=== PATIENT | female | born 1995 | race Caucasian/White ===

== ENCOUNTER 2017-09-26 19:35 | Emergency (ER) | payer SELFPAY ==
--- NOTE | 2017-09-26 21:32 | ER Document Report ---
ED Medical Screen (RME) - General Chief Complaint: Abdominal Cramping Stated Complaint: STOMACH PAIN Time Seen by Provider: 09/26/17 21:30 Notes: 21-year-old female, at approximately 12 weeks gestation by last menstrual period, comes emergency department for chief complaint of worsening cramps for the past 2 days. No bleeding, no fever, no discharge. No ultrasound this yet. TRAVEL OUTSIDE OF THE [place] IN LAST 30 DAYS: No - Related Data Allergies/Adverse Reactions: sulfamethoxazole [From Octra] Allergy (Verified 09/26/17 19:40) trimethoprim [From Octra] Allergy (Verified 09/26/17 19:40) Physical Exam - Vital signs Vitals: Temp Pulse Resp BP Pulse Ox 99.5 F 82 18 124/71 100 09/26/17 19:55 09/26/17 19:55 09/26/17 19:55 09/26/17 19:55 09/26/17 19:55 - Abdominal Tenderness: Nontender - Exam limited by sitting position but no overt tenderness noted. No: Tender, McBurney's point, Lang's sign, Guarding Course - Vital Signs Vital signs: Temp Pulse Resp BP Pulse Ox 99.5 F 82 18 124/71 100 09/26/17 19:55 09/26/17 19:55 09/26/17 19:55 09/26/17 19:55 09/26/17 19:55
--- NOTE | 2017-09-26 22:57 | ER Document Report ---
ED General - General Chief Complaint: Abdominal Cramping Stated Complaint: STOMACH PAIN Time Seen by Provider: 09/26/17 21:30 Notes: Patient is a 21 old female presents with complaints of some lower pelvic cramping and pain. It has been ongoing for 2 days. She is approximately 12 weeks . She has not had any care as of yet. She is taking vitamins. This is her second . She denies any pain with her first . She denies any vaginal bleeding or abnormal discharge. He does have some morning sickness. TRAVEL OUTSIDE OF THE [place] IN LAST 30 DAYS: No - Related Data Allergies/Adverse Reactions: sulfamethoxazole [From ] Allergy (Verified 09/26/17 19:40) trimethoprim [From ] Allergy (Verified 09/26/17 19:40) Past Medical History - Social History Smoking Status: Never Smoker Frequency of alcohol use: None Drug Abuse: None Family History: Reviewed & Not Pertinent Review of Systems - Review of Systems Notes: My Normal Review Basic REVIEW OF SYSTEMS: CONSTITUTIONAL : Denies fever, chills, or sweats. Denies recent illness. EENT: Denies eye, ear, throat, or mouth pain or symptoms. Denies nasal or sinus congestion. RESPIRATORY: Denies cough, cold, or chest congestion. Denies shortness of breath, difficulty breathing, or wheezing. GASTROINTESTINAL: Intermittent suprapubic pain. Some morning sickness. GENITOURINARY: Denies difficulty urinating, painful urination, burning, frequency, or blood in urine. FEMALE GENITOURINARY: Denies vaginal bleeding, abnormal or irregular periods. Currently MUSCULOSKELETAL: Denies neck or back pain or joint pain or swelling. SKIN: Denies rash or skin lesions. NEUROLOGICAL: Denies altered mental status or loss of consciousness. ALL OTHER SYSTEMS REVIEWED AND NEGATIVE. Physical Exam - Vital signs Vitals: Temp Pulse Resp BP Pulse Ox 99.5 F 82 18 124/71 100 09/26/17 19:55 09/26/17 19:55 09/26/17 19:55 09/26/17 19:55 09/26/17 19:55 - Notes Notes: General Appearance: Well nourished, alert, cooperative, no acute distress, no obvious discomfort. Well appearing. Vitals: reviewed, See vital signs table. Eyes: PERRL, EOMI, Conjuctiva clear Mouth: No decreasd moisture Lungs: No wheezing, No rales, No rhonci, No accessory muscle use, good air exchange bilaterally. Heart: Normal rate, Regular rythm, No murmur, no rub Abdomen: Normal BS, soft, No rigidity, mild suprapubic abdominal tenderness to palpation, No guarding, no rebound, no abdominal masses, no organomegaly Extremities: strength 5/5 in all extremities, good pulses in all extremities, no swelling or tenderness in the extremities, no edema. Skin: warm, dry, appropriate color, no rash Neuro: speech clear, oriented x 3, normal affect, responds appropriately to questions. Course - Re-evaluation Re-evalutation: 09/27/17 03:56 Patient is well-appearing. She did have some signs of dehydration therefore gave her a liter of IV fluids. I will give her Reglan to help with her nausea. She does have a UTI which most likely is causing some the cramping pain into her pelvic region. She has not had any abnormal vaginal discharge or bleeding. Strongly encouraged her follow-up closely with her OB doctor. I encouraged her return to ER if she has recurrent vomiting, fevers, any vaginal bleeding, or she feels unwell. Patient agrees with plan and will be discharged home. Dictation of this chart was performed using voice recognition software; therefore, there may be some unintended grammatical errors. - Vital Signs Vital signs: Temp Pulse Resp BP Pulse Ox 99.5 F 74 16 106/54 L 100 09/26/17 19:55 09/27/17 01:30 09/27/17 01:30 09/27/17 01:30 09/27/17 01:30 - Laboratory Result Diagrams: 09/26/17 22:05 09/26/17 22:05 Laboratory results interpreted by me: 09/26/17 09/26/17 09/26/17 22:00 22:05 22:05 RDW 14.6 H Carbon Dioxide 21 L Alkaline Phosphatase 42 L Beta HCG, Quant 653856.00 H Urine Ketones 80 H Urine Urobilinogen 4.0 H Ur Leukocyte Esterase LARGE H Discharge - Discharge Clinical Impression: Abdominal pain Qualifiers: Abdominal location: lower abdomen, unspecified Qualified Code(s): R10.30 - Lower abdominal pain, unspecified Qualifiers: Weeks of gestation: 12 weeks Qualified Code(s): Z3A.12 - 12 weeks gestation of UTI (urinary tract infection) Qualifiers: Urinary tract infection type: site unspecified Hematuria presence: without hematuria Qualified Code(s): N39.0 - Urinary tract infection, site not specified Condition: Good Disposition: HOME, SELF-CARE Additional Instructions: Please take the antibiotics as prescribed. Please take the nausea medicine to help with your nausea and vomiting. Please follow up with an OB as soon as possible for continued care during your . Please return to the ER immediately if you develop fevers, intractable vomiting, worsening abdominal pain, or if you feel unwell. Prescriptions: Cephalexin Monohydrate [Keflex 500 mg Capsule] 500 mg PO BID #14 capsule Metoclopramide HCl [Reglan 10 mg Tablet] 1 tab PO ASDIR PRN #25 tablet PRN Reason: Referrals: TUCKER FRIAS MD [ACTIVE STAFF] - Follow up in 3-5 days
[2017-09-26 23:07] LABS: ABSOLUTE LYMPHOCYTES (AUTO) 2.4 10^3/uL (0.5-4.7); ABSOLUTE MONOCYTES (AUTO) 0.4 10^3/uL (0.1-1.4); ABSOLUTE NEUT (AUTO) 4.9 10^3/uL (1.7-8.2); BASOPHILS % (AUTO) 0.4 % (0-2); EOSINOPHILS % (AUTO) 0.2 % (0-6); HEMATOCRIT 42.9 % (36.0-47.0); HEMOGLOBIN 14.8 g/dL (12.0-15.5); LYMPHOCYTES % (AUTO) 30.6 % (13-45); MEAN CORPUSCULAR HEMOGLOBIN 28.1 pg (27.0-33.4); MEAN CORPUSCULAR HGB CONC 34.5 g/dL (32.0-36.0); MEAN CORPUSCULAR VOLUME 82 fl (80-97); MONOCYTES % (AUTO) 5.4 % (3-13); PLATELET COUNT 226 10^3/uL (150-450); RED BLOOD COUNT 5.27 10^6/uL (3.72-5.28); RED CELL DISTRIBUTION WIDTH 14.6 % (11.5-14.0); SEGMENTED NEUTROPHILS % (AUTO) 63.4 % (42-78); TOTAL CELLS COUNTED % (AUTO) 100 %; WHITE BLOOD COUNT 7.8 10^3/uL (4.0-10.5)
[2017-09-26 23:12] LABS: APPEARANCE,URINE SLIGHTLY-CLOUDY; BILIRUBIN,URINE NEGATIVE (NEGATIVE); COLOR,URINE YELLOW; GLUCOSE, URINE NEGATIVE (NEGATIVE); KETONES,URINE 80 mg/dL (NEGATIVE); LEUKOCYTE ESTERASE,URINE LARGE (NEGATIVE); NITRITE,URINE NEGATIVE (NEGATIVE); PROTEIN,URINE NEGATIVE (NEGATIVE); URINE SPECIFIC GRAVITY 1.027
[2017-09-26 23:15] LABS: ALANINE AMINOTRANSFERASE 26 U/L (5-35); ALBUMIN 4.4 g/dL (3.7-5.6); ALKALINE PHOSPHATASE 42 U/L (50-135); ANION GAP 16 (5-19); ASPARTATE AMINO TRANSFERASE 15 U/L (5-30); BILIRUBIN,DIRECT 0.2 mg/dL (0.0-0.4); BILIRUBIN,TOTAL 0.6 mg/dL (0.2-1.3); BLOOD UREA NITROGEN 7 mg/dL (7-20); CARBON DIOXIDE 21 mmol/L (22-30); CHLORIDE 104 mmol/L (98-107); GLUCOSE 82 mg/dL (75-110); POTASSIUM 3.6 mmol/L (3.6-5.0); SODIUM 140.7 mmol/L (137-145); TOTAL PROTEIN 7.8 g/dL (6.3-8.2)
--- NOTE | 2017-09-26 23:33 | RADIOLOGY REPORT (SQ) ---
EXAM DESCRIPTION: US LESS THAN 14 WEEKS ADDITIONAL COMPLETED DATE/TME: 09/26/2017 21:30 CLINICAL HISTORY: 21 years Female, pelvic pain, Comparison: None. TECHNIQUE: Transvaginal. LIMITATIONS: None. FINDINGS: Living intrauterine fetus measures 12w5d with NIDHI of 04/05/2018. Cardiac activity is 155-bpm. [place]-rump length is 6.3-cm. 3.1-cm right ovary, nonvisualized left ovary, 1.8-cm likely rightcorpus luteum, 3.1-cm cervical length, and no free fluid. IMPRESSION: Living 1st trimester intrauterine gestation. No evidence of complication.
[2017-09-26] MEDS ORDERED: ONDANSETRON 4 MG TAB.RAPDIS PO ONE (23:55)
[2017-09-26] MEDS ORDERED: NORMAL SALINE 1000 ML 1,000 ML IV ONE (23:56)
[2017-09-26] MEDS ORDERED: CEFTRIAXONE INJ 1000 MG VIAL IV ONE (23:56)
[2017-09-26] MEDS ORDERED: METOCLOPRAMIDE HCL 10 MG TABLET PO ONE (23:57)
[2017-09-27 01:31] VITALS: BP 106/54
== END 2017-09-27 01:30 | disposition home or self-care (01) ==
LOC: ER 19:35
DX: O23.41 Unspecified infection of urinary tract in pregnancy, first trimester (principal); O26.891 Other specified pregnancy related conditions, first trimester; R10.2 Pelvic and perineal pain; R11.0 Nausea; Z88.1 Allergy status to other antibiotic agents; Z3A.12 12 weeks gestation of pregnancy
CPT/HCPCS: 86900; 86901; 36415; 84702; 85025; 80053; 81001; 76801; 93976; J0696; J7030

== ENCOUNTER 2018-03-15 22:07 | Outpatient (CLI) | payer MEDICAID ==
[2018-03-15 22:32] LABS: APPEARANCE,URINE SLIGHTLY-CLOUDY; BILIRUBIN,URINE NEGATIVE (NEGATIVE); COLOR,URINE YELLOW; GLUCOSE, URINE NEGATIVE (NEGATIVE); KETONES,URINE NEGATIVE (NEGATIVE); LEUKOCYTE ESTERASE,URINE LARGE (NEGATIVE); NITRITE,URINE NEGATIVE (NEGATIVE); PROTEIN,URINE NEGATIVE (NEGATIVE); URINE SPECIFIC GRAVITY 1.026
[2018-03-15 22:47] LABS: URINE AMPHETAMINES SCREEN NEGATIVE; URINE BARBITURATES SCREEN NEGATIVE; URINE BENZODIAZEPINES SCREEN NEGATIVE; URINE COCAINE SCREEN NEGATIVE; URINE MARIJUANA (THC) SCREEN NEGATIVE; URINE METHADONE SCREEN NEGATIVE; URINE PHENCYCLIDINE SCREEN NEGATIVE
--- NOTE | 2018-03-15 23:10 | Non Stress Test Report ---
Non Stress Test Datetime Report Generated by CPN: 03/15/2018 23:10 DEMOGRAPHIC EGA NST: 37.0 INDICATION Indication for Study: Ordered by Provider VITAL SIGNS Temperature - NST: 98.6 MONITORING Monitor Explained: Monitor Explained; Test Explained; Patient Verbalized Understanding Time on Monitor: 03/15/2018 22:24 Time off Monitor: 03/15/2018 23:08 NST Duration: 44 NST INTERVENTIONS NST Interventions: None Physician Notified NST: Dr. Hernandez BABY A: [id number] BABY A Movement : Present Contraction Frequency : uterine irritability FHR Baseline : 135 Accelerations : 15X15 Decelerations : None Variability : Moderate 6-25bpm NST Review: Meets Criteria for Reactive NST NST Review and Verified By : LUZMA Olson NST REPORT Report Trigger: Send Report
== END 2018-03-15 23:02 | disposition home or self-care (01) ==
LOC: LC 22:07
PROVIDERS: ATTEND Obstetrics & Gynecology Gynecology
PROC: 4A1HXCZ Monitoring of Products of Conception, Cardiac Rate, External Approach (ICD-10-PCS; principal; 2018-03-15)
DX: O47.1 False labor at or after 37 completed weeks of gestation (principal); Z3A.37 37 weeks gestation of pregnancy
CPT/HCPCS: 80307; 81005

== ENCOUNTER 2018-03-29 05:04 | Inpatient (IN) | payer MEDICAID ==
[2018-03-28 11:43] LABS: ABSOLUTE EOSINOPHILS # (AUTO) 0.1 10^3/uL (0.0-0.6); ABSOLUTE LYMPHOCYTES (AUTO) 1.4 10^3/uL (0.5-4.7); ABSOLUTE MONOCYTES (AUTO) 0.5 10^3/uL (0.1-1.4); BASOPHILS % (AUTO) 0.4 % (0-2); EOSINOPHILS % (AUTO) 0.7 % (0-6); HEMATOCRIT 32.2 % (36.0-47.0); HEMOGLOBIN 10.7 g/dL (12.0-15.5); LYMPHOCYTES % (AUTO) 17.8 % (13-45); MEAN CORPUSCULAR HEMOGLOBIN 23.8 pg (27.0-33.4); MEAN CORPUSCULAR HGB CONC 33.2 g/dL (32.0-36.0); MEAN CORPUSCULAR VOLUME 72 fl (80-97); PLATELET COUNT 175 10^3/uL (150-450); RED CELL DISTRIBUTION WIDTH 15.3 % (11.5-14.0); SEGMENTED NEUTROPHILS % (AUTO) 75.1 % (42-78); TOTAL CELLS COUNTED % (AUTO) 100 %
[2018-03-28 11:52] LABS: APPEARANCE,URINE SLIGHTLY-CLOUDY; BILIRUBIN,URINE NEGATIVE (NEGATIVE); COLOR,URINE YELLOW; GLUCOSE, URINE NEGATIVE (NEGATIVE); KETONES,URINE NEGATIVE (NEGATIVE); LEUKOCYTE ESTERASE,URINE MODERATE (NEGATIVE); NITRITE,URINE NEGATIVE (NEGATIVE); PROTEIN,URINE NEGATIVE (NEGATIVE); URINE SPECIFIC GRAVITY 1.017; UROBILINOGEN,URINE NEGATIVE mg/dL (<2.0)
[2018-03-28 12:01] LABS: URINE AMPHETAMINES SCREEN NEGATIVE; URINE BARBITURATES SCREEN NEGATIVE; URINE BENZODIAZEPINES SCREEN NEGATIVE; URINE COCAINE SCREEN NEGATIVE; URINE MARIJUANA (THC) SCREEN NEGATIVE; URINE METHADONE SCREEN NEGATIVE; URINE PHENCYCLIDINE SCREEN NEGATIVE
[2018-03-28 13:11] LABS: CHLAM PCR NOT DETECTED (NOT DETECT); GON PCR NOT DETECTED (NOT DETECT)
[2018-03-29] MEDS ORDERED: CEFAZOLIN 2 GM/D5W RTU 2 GM/50 ML RTUPB IV PRN (05:09)
[2018-03-29] MEDS ORDERED: RINGERS SOLUTION,LACTATED 1,000 ML IV ONE (05:15)
[2018-03-29] MEDS ORDERED: ONDANSETRON HCL INJ/PF 4 MG/2 ML SDV ONE (07:14)
[2018-03-29] MEDS ORDERED: OXYTOCIN/NORMAL SALINE 20 UNIT/1,000 ML RTUINJ ONE (07:14)
[2018-03-29] MEDS ORDERED: MIDAZOLAM 2 MG/2 ML INJ ONE (07:14)
[2018-03-29] MEDS ORDERED: FENTANYL CITRATE INJ/PF 100 MCG/2 ML AMPUL ONE (07:14)
[2018-03-29] MEDS ORDERED: KETOROLAC TROMETHAMINE INJ/PF 30 MG/1 ML SDV ONE (07:14)
[2018-03-29] MEDS ORDERED: EPHEDRINE SULFATE INJ 50 MG/1 ML AMPULE ONE (07:14)
[2018-03-29] MEDS ORDERED: OXYTOCIN 10 UNIT/ML VIAL ONE (07:14)
[2018-03-29] MEDS ORDERED: ACETAMINOPHEN 1,000 MG/100 ML RTUPB IV ONE (07:14)
[2018-03-29] MEDS ORDERED: ONDANSETRON HCL INJ/PF 4 MG/2 ML SDV IV PRN (08:15)
[2018-03-29] MEDS ORDERED: DIPHENHYDRAMINE HCL 50 MG/ML VIAL IV PRN (08:15)
[2018-03-29] MEDS ORDERED: FENTANYL CITRATE INJ/PF 100 MCG/2 ML AMPUL IV PRN ×3 (08:15)
[2018-03-29] MEDS ORDERED: PROMETHAZINE HCL INJ 25 MG/1 ML VIAL IV PRN ×3 (08:15→08:53)
[2018-03-29] MEDS ORDERED: OXYCODONE-ACETAMINOPHEN 5-325 MG TABLET PO PRN ×3 (08:15→08:53)
[2018-03-29] MEDS ORDERED: MEPERIDINE HCL/PF INJ 25 MG/1 ML DISP.SYRIN IV PRN (08:15)
--- NOTE | 2018-03-29 08:50 | PDOC DELIVERY SUMMARY ---
Delivery Summary - Maternal Hx : II Hx Para: I Hx # Term Pregnancies: 1 Hx # Pregnancies: 0 Hx Total # of Abortions (Sponateous & Elective): 0 NIDHI: 04/05/18 Gestational Age: 39 Ruptured Membranes: AROM Time of Rupture: 08:05 Fluids: Clear - Delivery Labor: Not In Labor Presentation: Vertex Heart Rate Monitoring: Done Pre-Operatively Support Person Present: Yes Location: OR : Scheduled, Repeat Placenta: Within Normal Limits Placenta Description: Normal-appearing Number of Vessels (Cord): 3 Delivery of Placenta Date: 03/29/18 Delivery of Placenta Time: 08:08 Estimated Blood Loss: 800 ml - Medications Type of Anesthesia:: Spinal - Infant Assess and Care Baby 1 Female Delivery of Date: 03/29/18 Delivery of Time: 08:07 at 1 minute: 9 at 5 minutes: 9 Preprinted Number On Band: [id number] Infant Skin to Skin: Yes Skin to Skin (Mins): 5 To Nursery At: 08:17 [facility] Personnel Machine Hamper Maker: SILKE Putnam RN: CHINMAY SALVADOR RN RN: JOHNNY WINKLER MD: IZAIAH DUMONT
[2018-03-29] MEDS ORDERED: OXYTOCIN/NORMAL SALINE 20 UNIT/1,000 ML RTUINJ IV PRN (08:53)
[2018-03-29] MEDS ORDERED: ACETAMINOPHEN 325 MG TABLET PO PRN (08:53)
[2018-03-29] MEDS ORDERED: SIMETHICONE 80 MG TAB.CHEW PO PRN (08:53)
[2018-03-29] MEDS ORDERED: DIPH/PERTUSS(ACELL)/TETANUS VAC/PF 0.5 ML SYR (>=10YO) IM PRN (08:53)
--- NOTE | 2018-03-29 08:53 | Operative Report ---
Operative Report DATE OF SURGERY: 03/29/18 PREOPERATIVE DIAGNOSIS: 1. Intrauterine at 39-0/7 weeks. 2. Previo us section x1. 3. GBS negative. 4. Rh+. 5. Rubella immune POSTOPERATIVE DIAGNOSIS: Same OPERATION: Repeat section SURGEON: IZAIAH RHODES ANESTHESIA: Spinal TISSUE REMOVED OR ALTERED: Placenta COMPLICATIONS: None ESTIMATED BLOOD LOSS: 800 ml INTRAOPERATIVE FINDINGS: Female in a cephalic position; Apgars 9 at one, 9 at 5 with a weight of 7 pounds 2 ounces; normal-appearing uterus, bilateral tubes and ovaries PROCEDURE: The patient was taken to the operating room where spinal anesthesia was obtained and found to be adequate. She was then prepped and draped in the normal sterile fashion and placed in the dorsal supine position with a leftward tilt. A Pfannenstiel skin incision was then made and carried through to the underlying layers of the fascia with the scalpel. The fascia was incised in the midline and the incision extended laterally with the Núñez scissors. The superior aspect of the fascial incision was then grasped with Akren clamps elevated and the underlying rectus muscles dissected off both bluntly and sharply. Attention was then turned to the inferior aspect of the fascial incision which in a similar fashion was grasped, tented up with Karen clamps, and the rectus muscles dissected off both bluntly and sharply. The rectus muscles were then in the midline and the peritoneum was identified and entered both sharply and bluntly. The peritoneal incision was then extended superiorly and inferiorly with good visualization of the bladder. The bladder blade was inserted and the vesicouterine peritoneum identified grasped with Monegasque pickups and entered sharply with the Metzenbaum scissors. This incision was then extended laterally with the Metzenbaum scissors and a bladder flap created digitally. The bladder blade was then reinserted and the lower uterine segment incised in a transverse fashion with the scalpel. The uterine incision was then extended bluntly and with the bandage scissors. The bladder blade was removed and the infant's head was delivered from cephalic presentation atraumatically. The nose and mouth were suctioned and the cord doubly clamped and cut. The was handed off to waiting pediatricians. The placenta was then delivered manually and the uterus exteriorized and cleared of all clots and debris. The uterine incision was then repaired with 0 Vicryl in a running locked fashion. 0-Chromic was used to obtain hemostasis via imbrication of the initial layer. The bladder flap was then repaired with 3-0 Vicryl in a running fashion. The uterus was returned to the patient's abdomen and Interceed was placed overlying the uterine incision, as well as a piece placed vertically on the anterior surface of the uterus, to prevent adhesions. The gutters were cleared of all clots and debris. All operative sites were noted to be hemostatic. The fascia was reapproximated with 0 Vicryl in a running fashion from each lateral edge to the midline. The subcutaneous fat layer was then closed in an interrupted fashion with 3-0 vicryl. The skin was closed with 4-0 Monocryl in a running, subcuticular fashion. The patient tolerated the procedure well. Sponge, lap, needle and instrument counts are correct x 2. 2 g of Ancef were given prior to skin incision. The patient was taken to the recovery area awake and in stable condition.
[2018-03-29] MEDS ORDERED: OXYCODONE-ACETAMINOPHEN 5-325 MG TABLET ONE (10:54)
[2018-03-29] MEDS: HYDROMORPHONE HCL INJ/PF 2 MG/ML AMPULE IV PRN ×2 (12:17→21:11)
[2018-03-29] MEDS: PRENATAL VITAMIN W DHA CAPSULE PO SCH (13:30)
[2018-03-29] MEDS: DOCUSATE SODIUM 100 MG CAPSULE PO SCH ×2 (13:30→17:40)
[2018-03-29] MEDS: KETOROLAC TROMETHAMINE INJ/PF 30 MG/1 ML SDV IV SCH ×2 (13:31→22:32)
[2018-03-29] MEDS: OXYCODONE-ACETAMINOPHEN 5-325 MG TABLET PO PRN ×2 (14:06→17:42)
[2018-03-30] MEDS: OXYCODONE-ACETAMINOPHEN 5-325 MG TABLET PO PRN ×4 (03:14→22:44)
[2018-03-30] MEDS: IBUPROFEN 800 MG TABLET PO SCH ×4 (03:20→20:50)
[2018-03-30] MEDS ORDERED: LIDOCAINE 0.5% INJ-PF (5 MG/ML) 50 ML SDV SUBCUT PRN (05:00)
[2018-03-30] MEDS ORDERED: NORMAL SALINE 1000 ML (RENAL PATIENTS) IV PRN (05:00)
[2018-03-30] MEDS ORDERED: LACTATED RINGERS 1000 ML IV PRN (05:00)
[2018-03-30 08:08] LABS: HEMATOCRIT 28.3 % (36.0-47.0); HEMOGLOBIN 9.2 g/dL (12.0-15.5); MEAN CORPUSCULAR HEMOGLOBIN 23.8 pg (27.0-33.4); MEAN CORPUSCULAR HGB CONC 32.6 g/dL (32.0-36.0); MEAN CORPUSCULAR VOLUME 73 fl (80-97); PLATELET COUNT 154 10^3/uL (150-450); RED BLOOD COUNT 3.88 10^6/uL (3.72-5.28); RED CELL DISTRIBUTION WIDTH 15.6 % (11.5-14.0)
[2018-03-30] MEDS ORDERED: IRON SUCROSE COMPLEX INJ/PF 100 MG/5 ML SDV IV ONE (10:00)
[2018-03-30] MEDS: DOCUSATE SODIUM 100 MG CAPSULE PO SCH ×2 (11:14→17:07)
[2018-03-30] MEDS: PRENATAL VITAMIN W DHA CAPSULE PO SCH (11:14)
--- NOTE | 2018-03-30 15:14 | PDOC PROGRESS REPORT ---
Subjective-OB Progress Note for:: 03/30/18 Subjective: reports bleeding slowing, pain controlled with current meds. denies needs. +flatus Physical Exam (OB) Vital Signs: Temp Pulse Resp BP Pulse Ox 98.5 F 74 16 105/61 98 03/30/18 11:13 03/30/18 11:13 03/30/18 11:13 03/30/18 11:13 03/30/18 11:13 Intake & Output 03/29/18 03/30/18 03/31/18 06:59 06:59 06:59 Intake Total 425 420 Output Total 1900 Balance -1475 420 Weight 80.739 kg - Dressing Removed: No - op site intact Incision: Dressing, Well Approximated - Abdomen Description: Soft Hernia Present: No Fundal Description: Firm, Midline Fundal Height: u/u - u/2 - Abdominal Inspection: Normal Distension: No distension Tenderness: Nontender - Extremities Lower extremities: Ayaka's sign - neg Calf: Normal, Nontender Objective-Diagnostic Laboratory: 03/30/18 07:38 03/30/18 07:38 WBC 12.0 H RBC 3.88 Hgb 9.2 L Hct 28.3 L MCV 73 L MCH 23.8 L MCHC 32.6 RDW 15.6 H Plt Count 154 Assessment and Plan(PN) - Assessment and Plan (1) S/P repeat low transverse Is this a current diagnosis for this admission?: Yes - Time Spent with Patient Time with patient: Less than 15 minutes Medications reviewed and adjusted accordingly: Yes - Disposition Anticipated Discharge: Home Within: within 24 hours
[2018-03-31] MEDS: IBUPROFEN 800 MG TABLET PO SCH ×2 (03:20→10:09)
[2018-03-31] MEDS: OXYCODONE-ACETAMINOPHEN 5-325 MG TABLET PO PRN (03:20)
--- NOTE | 2018-03-31 09:18 | PDOC DISCHARGE SUMMARY ---
Final Diagnosis Discharge Date: 03/31/18 - Final Diagnosis (1) S/P repeat low transverse Is this a current diagnosis for this admission?: Yes Discharge Data - Discharge Medication Prescriptions: Ibuprofen [Motrin 800 mg Tablet] 800 mg PO Q8HP PRN #60 tablet PRN Reason: Oxycodone HCl/Acetaminophen [Percocet 5-325 mg Tablet] 1 tab PO Q4HP PRN #30 tablet PRN Reason: Home Medications: No122/Iron/Folic Acid [ Multi Tablet] 1 tab PO DAILY 03/15/18 Ferrous Sulfate [Iron] 325 mg PO DAILY 03/28/18 Docusate Sodium [Colace 100 mg Capsule] 100 mg PO BID capsule 03/31/18 Ibuprofen [Motrin 800 mg Tablet] 800 mg PO Q8HP PRN #60 tablet 03/31/18 Oxycodone HCl/Acetaminophen [Percocet 5-325 mg Tablet] 1 tab PO Q4HP PRN #30 tablet 03/31/18 Reason(s) for Admission: Ceasarean Section-Repeat Procedures: NST Intrapartum Procedure(s): : Low Cervical, Transverse - Diagnosis Test Laboratory: Temp Pulse Resp BP Pulse Ox 98.0 F 77 15 109/58 L 100 03/31/18 07:34 03/31/18 07:34 03/31/18 07:34 03/31/18 07:34 03/31/18 07:34 03/28/18 03/28/18 03/30/18 10:52 11:01 07:38 RBC 4.50 3.88 Hgb 10.7 L 9.2 L Hct 32.2 L 28.3 L Urine Opiates Screen NEGATIVE - Discharge information/Instructions Discharge Activity: Balance Activity w/Rest, No Lifting Over 10 Pounds, No Lifting/Push/Pulling, Pelvic Rest, No tub bath Discharge Diet: Regular Disposition: HOME, SELF-CARE Follow up with: [facility] in: 1, Weeks
[2018-03-31] MEDS: PRENATAL VITAMIN W DHA CAPSULE PO SCH (10:08)
[2018-03-31] MEDS: DOCUSATE SODIUM 100 MG CAPSULE PO SCH (10:08)
[2018-03-31 14:02] VITALS: BP 106/59
== END 2018-03-31 14:28 | disposition home or self-care (01) | DRG 788 ==
LOC: 2S 05:04
PROVIDERS: ADMIT Obstetrics & Gynecology; ATTEND Obstetrics & Gynecology
PROC: 10D00Z1 Extraction of Products of Conception, Low, Open Approach (ICD-10-PCS; principal; 2018-03-29 07:45)
DX: O34.211 Maternal care for low transverse scar from previous cesarean delivery (principal); N85.8 Other specified noninflammatory disorders of uterus; O99.344 Other mental disorders complicating childbirth; F41.9 Anxiety disorder, unspecified; Z3A.39 39 weeks gestation of pregnancy; Z37.0 Single live birth
CPT/HCPCS: 1961; 36415; 59025; 80307; 81001; 85025; 85027; 86850; 86900; 86901; 87491; 87591; 94799; C1765; J0131; J0690; J1170; J1756; J1885; J2250; J2405; J2590; J3010; J3490

== ENCOUNTER → 2019-08-02 | Outpatient (CLI) | payer SELFPAY ==
[2019-08-02 13:56] VITALS: BP 100/68
--- NOTE | 2019-08-02 13:56 | ER RDC ASSESSMENT REPORT ---
Intake - In the Last 14 days Have you traveled outside [place]?: Yes --City/State: recently returned from [place] Have you been in close contact with someone CONFIRMED: No Worked in Healthcare?: No - Symptoms Subjective Fever([place] feverish): Yes Chills: Yes Muscule Aches: Yes Runny Nose: Yes Sore Throat: Yes Cough (New or worsening chronic cough): Yes Shortness of breath: Yes Nausea or Vomiting: Yes Headache: Yes Abdominal Pain: Yes Diarrhea(3 or more loose stools in last 24 hours): No - Do you have any of the following Chronic lung disease: Asthma or emphysema or COPD: Yes Chronic Lung Disease Comment: Childhood asthma Cystic Fibrosis: No Diabetes: No High Blood Pressure: No Cardiovascular Disease: No Chronic Kidney Disease: No Chronic Liver Disease: No Chronic blood disorder like Sickle Cell Disease: No Weak immune system due to disease or medication: No Neurologic condition that limits movement: No Developmental delay - Moderate to Severe: No Recent (within past 2 weeks) or current : No Morbid Obesity (>100 pounds over ideal weight): No Obesity Comment: Height 5 feet 6 inches weight 140 pounds - Objective Temperature: 98.5 F Pulse Rate: 105 Respiratory Rate: 22 Blood Pressure: 100/68 O2 Sat by Pulse Oximetry: 99 Objective: Given above, testing performed: If Testing Performed: Test Specimen Type Sent to General - General Information source: Patient Notes: Patient here at [facility] for COVID testing reports he just returned from [place] started to feel ill with flulike symptoms and upper respiratory illness a couple of days ago starting on 31 July does not have a local provider. Patient contacted daughters line person at [facility] with similar symptoms and was advised to seek COVID testing. - Related Data Allergies/Adverse Reactions: sulfamethoxazole [From Septra] Allergy (Verified 03/28/18 11:09) trimethoprim [From Septra] Allergy (Verified 03/28/18 11:09) Past Medical History - General Information source: Patient - Social History Smoking Status: Never Smoker Family History: Reviewed & Not Pertinent Renal/ Medical History: Denies: Hx Peritoneal Dialysis Physical Exam - General General appearance: Appears well, Alert In distress: None Notes: PHYSICAL EXAMINATION: GENERAL: Well-appearing and in no acute distress. HEAD: Atraumatic, normocephalic. EYES: sclera anicteric, conjunctiva are normal. ENT: nares patent. Moist mucous membranes. NECK: Normal range of motion, supple without lymphadenopathy LUNGS: CTAB and equal. No wheezes rales or rhonchi. Resp even and unlabored. Sara ng sounds clear. HEART: Regular rate and rhythm without murmurs ABDOMEN: Soft, nontender, normal bowel sounds, no guarding. EXTREMITIES: No cyanosis. NEUROLOGICAL: Normal speech. PSYCH: Normal mood, normal affect. SKIN: Warm, Dry, normal turgor, Diagnostic Results Laboratory Results: Patient informed of negative rapid strep and negative rapid flu results . pending strep culture pending COVID testing results. Patient provided instructions regarding COVID to include; as a person under investigation for Covid 19, the [facility] of Health and Human Services, division of public health advises you to adhere to the following guidance until your test results are reported to you. If your test result is positive, you will receive additional information from your provider and your local health department at that time. Remain at home until you are cleared by the health provider or public health authorities. Keep a log of visitors to your home, notify any visitors to your home of your isolation status. If you plan to move to a new address or leave the county, notify the local health department in your County. Call your doctor or seek care if you have an urgent medical need. Before seeking medical care, call ahead to get instructions from the provider before arriving at the medical office clinic or hospital. Notify them that you are being tested for the virus that causes Covid 19 so that arrangements can be made, as necessary, to prevent transmission to others in the healthcare setting. Next, notify the local health department in your county. If a medical emergency arises and you need to call 911, inform the first responders that you are being tested for the virus that causes Covid 19. Next, notify the local health department in your county. Patient Education/Counseling Counseling/Education: Patient presents with upper respiratory symptoms worrisome for possible Covid 19. Patient does not have emergency worring symptoms such as difficulty breathing, shortness of breath, chest pain, pressure, confusion or cyanosis. Patient appears suitable for discharge. Instructed to follow-up with urgent care or to ED for persistent or worsening symptoms. patient's vital signs are stable and patient is nontoxic in appearance. Good return precautions have been discussed with patient, patient verbalized understanding and is agreeable with discharge plan of care at this time. RDC Discharge - Discharge Clinical Impression: COVID -19 SCREENING Condition: Stable Disposition: Home; Selfcare
[2019-08-02 14:30] LABS: A TYPE INFLUENZA AG NEGATIVE (NEGATIVE); B INFLUENZA AG NEGATIVE (NEGATIVE)
== END ==
LOC: RDC 12:48
PROVIDERS: ATTEND Nurse Practitioner Family
DX: Z20.828 Contact with and (suspected) exposure to other viral communicable diseases (principal); R50.9 Fever, unspecified; R06.02 Shortness of breath; R05 Cough; M79.10 Myalgia, unspecified site; J02.9 Acute pharyngitis, unspecified; R09.89 Other specified symptoms and signs involving the circulatory and respiratory systems; R11.0 Nausea; R10.9 Unspecified abdominal pain; Z88.2 Allergy status to sulfonamides
CPT/HCPCS: 36415; 87070; 87880; 87635; 87804; C9803